=== PATIENT | female | born 1950 | race Caucasian/White ===

== ENCOUNTER 2017-12-09 08:52 | Emergency (ER) | payer MEDICARE, OTHER ==
[2017-12-09 09:14] VITALS: BP 155/73
--- NOTE | 2017-12-09 09:49 | UC ---
Shoulder Pain HPI - HPI Summary HPI Summary: Patient to urgent care today with chief complaint of 1 week of left trapezia pain just lateral to her thoracic spine near her scapula and pain up into the lateral side of her neck. Pain does not radiate has no weakness numbness or tingling no chest pain no shortness of breath no rash or open areas on her skin. - History of Current Complaint Hx Obtained From: Patient Hx Last Menstrual Period: 10 yrs ?: No Onset/Duration: Sudden Onset, Lasting Weeks - 1, Still Present Location Of Pain: Is Discrete @ Pain Intensity: 6 Pain Scale Used: 0-10 Numeric Character: Aching, Stiffness Aggravating Factor(s): Nothing Alleviating Factor(s): Other - heat , muscle rub, Associated Signs And Symptoms: Positive: Negative Related History: Dominant Hand Right <Luna Aleman - Last Filed: 12/09/17 10:00> <Annmarie Duron - Last Filed: 12/09/17 10:43> - History of Current Complaint Chief Complaint: UCUpperExtremity Stated Complaint: NECK PAIN Time Seen by Provider: 12/09/17 09:38 - Allergies/Home Medications Allergies/Adverse Reactions: Allergies Allergy/AdvReac Type Severity Reaction Status Date / Time No Known Allergies Allergy Verified 12/09/17 09:06 Home Medications: Home Medications Rosuvastatin Calcium [Crestor] 20 mg PO QPM 12/09/17 [History Confirmed 12/09/17 ] PMH/Surg Hx/FS Hx/Imm Hx Previously Healthy: No Endocrine History: Dyslipidemia - Surgical History Surgical History: None - Family History Known Family History: Positive: None - Social History Occupation: Retired Lives: With Family Alcohol Use: Daily Alcohol Amount: wine daily Substance Use Type: None Smoking Status (MU): Never Smoked Tobacco Have You Smoked in the Last Year: No - Immunization History Most Recent Tetanus Shot: 2010 Hx Tetanus, Diphtheria Vaccination: Yes Vaccination Up to Date: Yes <Luna Aleman - Last Filed: 12/09/17 10:00> Review of Systems Constitutional: Negative Skin: Negative Eyes: Negative ENT: Negative Respiratory: Negative Cardiovascular: Negative Gastrointestinal: Negative Genitourinary: Negative Motor: Negative Neurovascular: Negative Musculoskeletal: Myalgia Neurological: Negative Psychological: Negative Is Patient Immunocompromised?: No All Other Systems Reviewed And Are Negative: Yes <Luna Aleman - Last Filed: 12/09/17 10:00> Physical Exam Triage Information Reviewed: Yes Appearance: Well-Appearing, No Pain Distress, Well-Nourished Vital Signs: Initial Vital Signs Temp 98.2 F 12/09/17 09:07 Pulse 87 12/09/17 09:07 Resp 15 12/09/17 09:07 BP 155/73 12/09/17 09:07 Pulse Ox 98 12/09/17 09:07 Vital Signs Reviewed: Yes Eye Exam: Normal Eyes: Positive: Conjunctiva Clear ENT Exam: Normal ENT: Positive: Normal ENT inspection, Hearing grossly normal. Negative: Nasal congestion, Nasal drainage, Trismus, Muffled voice, Hoarse voice Dental Exam: Normal Neck exam: Normal Neck: Positive: Supple, Nontender, No Lymphadenopathy Respiratory Exam: Normal Respiratory: Positive: Chest non-tender, No respiratory distress, No accessory muscle use Cardiovascular Exam: Normal Cardiovascular: Positive: RRR, Pulses Normal, Brisk Capillary Refill Musculoskeletal Exam: Normal Neurological Exam: Normal Neurological: Positive: Alert, Muscle Tone Normal, Fatigued Psychological Exam: Normal Psychological: Positive: Age Appropriate Behavior Skin Exam: Normal <Luna Aleman - Last Filed: 12/09/17 10:00> Vital Signs: Initial Vital Signs Temp 98.2 F 12/09/17 09:07 Pulse 87 12/09/17 09:07 Resp 12/09/17 09:07 BP 155/73 12/09/17 09:07 Pulse Ox 98 12/09/17 09:07 <Annmarie Duron - Last Filed: 12/09/17 10:43> Shoulder Course/Dx - Course Assessment/Plan: heat, lidoderm patch, topriccin cream, ibuprofen flexeril, follow pain and blood pressure with pcp - Differential Dx/Diagnosis Provider Diagnoses: left thorasic muscular pain <Luna Aleman - Last Filed: 12/09/17 10:00> Discharge - Sign-Out/Discharge Documenting (check all that apply): Discharge/Admit/Transfer - Billing Disposition and Condition Condition: STABLE Disposition: Home <Luna Aleman - Last Filed: 12/09/17 10:00> - Billing Disposition and Condition Condition: STABLE Disposition: Home <Annmarie Duron - Last Filed: 12/09/17 10:43> - Discharge Plan Condition: Stable Disposition: HOME Prescriptions: Cyclobenzaprine TAB* [Flexeril 10 MG TAB*] 10 mg PO BID PRN #10 tab PRN Reason: muscle spasm Patient Education Materials: Acetaminophen (By mouth), Ibuprofen (By mouth), Hypertension (ED), Muscle Spasm (ED), Heat Pack Application (ED) Referrals: Av Lopez MD [Primary Care Provider] - 1 Week Additional Instructions: Topricin cream may be beneficial for the discomfort in you muscle, you may also experience good relief with Lidocaine patches---- Attestation Statement User Type: Provider - I was available for consult. This patient was seen by the VALERIY. The patient was not presented to, seen by, or examined by me. -Jess <nAnmarie Duron - Last Filed: 12/09/17 10:43>
== END 2017-12-09 10:02 | disposition home or self-care (01) ==
LOC: UCCORT 08:52
DX: M79.1 Myalgia (principal)
CPT/HCPCS: 99212; G0463